=== PATIENT | male | born 1940 | race Caucasian/White ===

== ENCOUNTER → 2016-07-07 | Outpatient (CLI) | payer MEDICARE ==
[2016-07-07 17:14] LABS: APPEARANCE,URINE CLEAR; BILIRUBIN,URINE NEGATIVE (NEGATIVE); GLUCOSE, URINE NEGATIVE (NEGATIVE); KETONES,URINE TRACE mg/dL (NEGATIVE); LEUKOCYTE ESTERASE,URINE NEGATIVE (NEGATIVE); NITRITE,URINE NEGATIVE (NEGATIVE); PROTEIN,URINE NEGATIVE (NEGATIVE); URINE SPECIFIC GRAVITY 1.013
[2016-07-07 17:15] LABS: HEMATOCRIT 37.7 % (37.9-51.0); HEMOGLOBIN 12.7 g/dL (13.5-17.0); HGB HCT DIFFERENCE 0.4; MEAN CORPUSCULAR HEMOGLOBIN 33.3 pg (27.0-33.4); MEAN CORPUSCULAR HGB CONC 33.7 g/dL (32.0-36.0); MEAN CORPUSCULAR VOLUME 99 fl (80-97); RED BLOOD COUNT 3.82 10^6/uL (4.35-5.55); RED CELL DISTRIBUTION WIDTH 15.2 % (11.5-14.0); WHITE BLOOD COUNT 3.4 10^3/uL (4.0-10.5)
[2016-07-07 17:33] LABS: ANION GAP 7 (5-19); BLOOD UREA NITROGEN 31 mg/dL (7-20); CALCIUM 9.4 mg/dL (8.4-10.2); CARBON DIOXIDE 26 mmol/L (22-30); CHLORIDE 107 mmol/L (98-107); CREATININE RESULT 1.36 mg/dL (0.52-1.25); GLUCOSE 100 mg/dL (75-110); POTASSIUM 4.9 mmol/L (3.6-5.0); SODIUM 140.4 mmol/L (137-145)
== END ==
LOC: OD 16:05
PROVIDERS: ATTEND Internal Medicine Nephrology
DX: I12.9 Hypertensive chronic kidney disease with stage 1 through stage 4 chronic kidney disease, or unspecified chronic kidney disease (principal); N18.3 Chronic kidney disease, stage 3 (moderate); D64.9 Anemia, unspecified; R31.9 Hematuria, unspecified
CPT/HCPCS: 36415; 80048; 81001; 85027

== ENCOUNTER → 2017-07-30 | Outpatient (CLI) | payer MEDICARE ==
[2017-07-30 16:47] LABS: ALANINE AMINOTRANSFERASE 28 U/L (21-72); ALBUMIN 3.4 g/dL (3.5-5.0); ALKALINE PHOSPHATASE 61 U/L (38-126); ANION GAP 7 (5-19); ASPARTATE AMINO TRANSFERASE 29 U/L (17-59); BILIRUBIN,DIRECT 0.5 mg/dL (0.0-0.4); BILIRUBIN,TOTAL 1.1 mg/dL (0.2-1.3); BLOOD UREA NITROGEN 28 mg/dL (7-20); CALCIUM 8.8 mg/dL (8.4-10.2); CARBON DIOXIDE 26 mmol/L (22-30); CHLORIDE 109 mmol/L (98-107); GLUCOSE 184 mg/dL (75-110); POTASSIUM 4.3 mmol/L (3.6-5.0); SODIUM 142.3 mmol/L (137-145); TOTAL PROTEIN 6.2 g/dL (6.3-8.2)
== END ==
LOC: OD 15:33
PROVIDERS: ATTEND Internal Medicine Nephrology
DX: N18.3 Chronic kidney disease, stage 3 (moderate) (principal); E87.5 Hyperkalemia; D64.9 Anemia, unspecified
CPT/HCPCS: 36415; 80053; 83735

== ENCOUNTER 2017-09-25 06:38 | Day surgery (SDC) | payer MEDICARE ==
[~2017-09-25 06:38] MED LIST: BUPIVACAINE HCL 0.75% INJ/PF (7.5 MG/1 ML) 10 ML SDV OS PRN; KETOROLAC TROMETHAMINE 0.45% 4 DROP/0.4 ML DROPERETTE OS PRN; LIDOCAINE 4% INJ/PF (40 MG/ML) 5 ML AMPUL OS PRN
[2017-09-25] MEDS: CYCLOPENTOLATE 0.2%/PHENYLEPHRINE 1% OPH SOLN 2 ML OS PRN ×3 (06:59→07:19)
[2017-09-25] MEDS: TETRACAINE HCL 0.5% OPH SOLN 0.6 ML DROPERETTE OS PRN ×2 (06:59→07:44)
[2017-09-25] MEDS: TROPICAMIDE 1% OPH SOLN 3 ML OS PRN ×3 (06:59→07:19)
[2017-09-25] MEDS: BESIFLOXACIN HCL 0.6% OPH SUSP 5 ML BOTTLE OS PRN ×4 (07:00→08:18)
[2017-09-25] MEDS ORDERED: LIDOCAINE 1% INJ-PF (10 MG/ML) 30 ML SDV ONE (07:13)
[2017-09-25] MEDS ORDERED: CHONDR SU A NA/HYALUR INTRAOC KIT (SURGICARE) ONE (07:13)
[2017-09-25] MEDS ORDERED: EPINEPHRINE INJ/PF 1 MG/1 ML AMPULE ONE (07:13)
[2017-09-25] MEDS ORDERED: ONDANSETRON HCL INJ/PF 4 MG/2 ML SDV ONE (07:15)
[2017-09-25] MEDS ORDERED: MIDAZOLAM 2 MG/2 ML INJ ONE (07:15)
[2017-09-25] MEDS ORDERED: FENTANYL CITRATE INJ/PF 100 MCG/2 ML AMPUL ONE (07:15)
--- NOTE | 2017-09-25 08:37 | [facility] OPERATIVE REPORT E ---
[facility] Operative Report NAME: SUSAN NARVAEZ AGE: 76Y DATE OF SURGERY: 09/25/2017 ROOM: PREOPERATIVE DIAGNOSIS: Cataract, left eye. POSTOPERATIVE DIAGNOSIS: Cataract, left eye. OPERATION: Phacoemulsification with posterior chamber intraocular lens, left eye. SURGEON: DIPTI HERNANDEZ M.D. ANESTHESIA: Topical with MAC. INDICATIONS FOR SURGERY: Difficulty reading road signs and glare at night. Best corrected visual acuity 20/40. PROCEDURE: The patient was brought to the Operating Room and placed on the operative table. Following tetracaine drops, topical anesthesia was administered. This consisted of instrument wipe pledgets soaked in a solution of 4% Xylocaine mixed with 0.75% Marcaine in a 1:2 ratio. A 2 x 1 cm pledget was placed in the superior fornix. A 1 x 1 cm pledget was placed in the inferior fornix. The eye was patched shut for 5 minutes. The patch was removed. The eye was sterilely prepped and draped in the usual manner. Lid speculum was placed in the eye. The pledgets were removed. 4-0 black silk sutures were placed around the superior and the inferior rectus muscles to be used as traction. A conjunctival peritomy was made at the 10 o'clock position. Hemostasis was obtained with bipolar cautery. A posterior limbal groove was created using a crescent knife and dissected anteriorly towards the cornea. A sharp point blade was used to create a paracentesis site at the 2 o'clock position. A 2.4 mm keratome was used to enter the anterior chamber through the groove. Viscoelastic was injected into the anterior chamber. An anterior capsulotomy was performed using Utrata forceps in a capsulorrhexis fashion. Hydrodissection and hydrodelineation were performed. Phacoemulsification was performed in wfqjle-daw-eissyaf technique. A total of 8.81 CVE seconds phaco time was used. Following this, the I/A unit was used to remove residual cortex. Viscoelastic was injected into the capsular bag. Intraocular lens model [id number], 19.0 diopters, serial number [id number] was placed in the capsular bag. The I/A unit was used to remove residual viscoelastic. The wound was seen to be watertight under high and low pressure, and no sutures were placed. The intraocular lens was well centered. The pressure was adjusted in the eye to normal pressure. The 4-0 black silk sutures and lid speculum were removed. The eye was shielded after Besivance drops were placed. The patient tolerated the procedure well and was sent to the Recovery Room in good condition. DICTATING PHYSICIAN: DIPTI HERNANDEZ M.D. [id number] PHY#: [id number] ID: [id number] JOB#: [id number] ACCT: [id number] cc:DIPTI HERNANDEZ M.D. >
--- NOTE | 2017-09-25 08:46 | [facility] DISCHARGE SUMMARY E ---
[facility] Discharge Summary NAME: SUSAN NARVAEZ AGE: 76Y ADMITTED: 09/25/2017 DISCHARGED: 09/25/2017 HOSPITAL COURSE: The patient is a 76-year-old gentleman who underwent uneventful cataract extraction with intraoperative implant left eye on 09/25/2017. He will be discharged to home. He is instructed to resume preoperative medications, take Tylenol as needed for discomfort, keep his eye shielded, to use Besivance, Durezol and Ilevro at 3:00 p.m. and 8:00 p.m., and to follow up in my office in 1 day. FINAL DIAGNOSIS: Cataract, left eye. DICTATING PHYSICIAN: DIPTI HERNANDEZ M.D. [id number] Y#: [id number] ID: [id number] JOB#: [id number] ACCT: [id number] cc:DIPTI HERNANDEZ M.D. >
== END 2017-09-25 09:11 | disposition home or self-care (01) ==
LOC: SC 06:38
PROVIDERS: ATTEND Ophthalmology
PROC: 08RK3JZ Replacement of Left Lens with Synthetic Substitute, Percutaneous Approach (ICD-10-PCS; principal; 2017-09-25 08:00)
DX: H25.813 Combined forms of age-related cataract, bilateral (principal); H02.831 Dermatochalasis of right upper eyelid; H02.834 Dermatochalasis of left upper eyelid; H57.03 Miosis; M19.90 Unspecified osteoarthritis, unspecified site; F17.210 Nicotine dependence, cigarettes, uncomplicated; Z79.899 Other long term (current) drug therapy
CPT/HCPCS: 66984; V2632; J2250; J3490 ×4; A9270; J0171; J3010; J2405; 142

== ENCOUNTER → 2017-10-11 | Outpatient (CLI) | payer MEDICARE ==
--- NOTE | 2017-10-11 14:56 | RADIOLOGY REPORT (SQ) ---
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 NUMBER OF VIEWS: Two views. TECHNIQUE: AP and lateral radiographic images acquired of the thoracic spine. LIMITATIONS: None. FINDINGS: MINERALIZATION: Normal. ALIGNMENT: Normal. No scoliosis. VERTEBRAE: No fracture or bone lesion. Maintained height, normal segmentation. DISCS: Multilevel disc space narrowing with osteophytes. HARDWARE: None in the spine. MEDIASTINUM AND SOFT TISSUES: Normal heart size and aortic contour. No soft tissue abnormality. VISUALIZED LUNG ROSS: Clear. OTHER: No other significant finding. IMPRESSION: SPONDYLOSIS WITHOUT BONE LESION OR FRACTURE. TECHNICAL DOCUMENTATION: JOB ID: [id number] [employer]- All Rights Reserved Reading location - IP/workstation name: [email or web address]
--- NOTE | 2017-10-11 14:58 | RADIOLOGY REPORT (SQ) ---
EXAM DESCRIPTION: L SPINE FLEX/EXT ONLY; L SPINE 2 VIEWS COMPLETED DATE/TIME: 10/11/2017 2:09 pm REASON FOR STUDY: LUMBAR RADICULOPATHY (M54.16) M54.16 RADICULOPATHY, LUMBAR REGION M48.04 SPINAL STENOSIS, THORACIC REGION COMPARISON: None. TECHNIQUE: AP and lateral neutral, flexion and extension radiographs of the spine. NUMBER OF VIEWS: Four views. LIMITATIONS: None. FINDINGS: There is a moderate convex right scoliosis. There is disc space narrowing and osteophyte formation at multiple levels with relative sparing of L1-2. No abnormal motion with flexion and exte nsion. OTHER: No other significant finding. IMPRESSION: NO RADIOGRAPHIC EVIDENCE OF ABNORMAL MOTION. TECHNICAL DOCUMENTATION: JOB ID: [id number] [employer]- All Rights Reserved Reading location - IP/workstation name: [email or web address]
--- NOTE | 2017-10-11 14:58 | RADIOLOGY REPORT (SQ) ---
EXAM DESCRIPTION: L SPINE FLEX/EXT ONLY; L SPINE 2 VIEWS COMPLETED DATE/TIME: 10/11/2017 2:09 pm REASON FOR STUDY: LUMBAR RADICULOPATHY (M54.16) M54.16 RADICULOPATHY, LUMBAR REGION M48.04 SPINAL STENOSIS, THORACIC REGION COMPARISON: None. TECHNIQUE: AP and lateral neutral, flexion and extension radiographs of the spine. NUMBER OF VIEWS: Four views. LIMITATIONS: None. FINDINGS: There is a moderate convex right scoliosis. There is disc space narrowing and osteophyte formation at multiple levels with relative sparing of L1-2. No abnormal motion with flexion and exte nsion. OTHER: No other significant finding. IMPRESSION: NO RADIOGRAPHIC EVIDENCE OF ABNORMAL MOTION. TECHNICAL DOCUMENTATION: JOB ID: [id number] [employer]- All Rights Reserved Reading location - IP/workstation name: [email or web address]
== END ==
LOC: RAD 13:53
PROVIDERS: ATTEND Specialist
DX: M48.04 Spinal stenosis, thoracic region (principal); M54.16 Radiculopathy, lumbar region; M41.86 Other forms of scoliosis, lumbar region; M47.894 Other spondylosis, thoracic region
CPT/HCPCS: 72070; 72100; 72120

== ENCOUNTER 2017-10-16 10:55 | Day surgery (SDC) | payer MEDICARE ==
[~2017-10-16 10:55] MED LIST changes: +BUPIVACAINE HCL 0.75% INJ/PF (7.5 MG/1 ML) 10 ML SDV OD PRN; -BUPIVACAINE HCL 0.75% INJ/PF (7.5 MG/1 ML) 10 ML SDV OS PRN; +CHONDR SU A NA/HYALUR INTRAOC KIT (SURGICARE) ONE; +EPINEPHRINE INJ/PF 1 MG/1 ML AMPULE ONE; +KETOROLAC TROMETHAMINE 0.45% 4 DROP/0.4 ML DROPERETTE OD PRN; -KETOROLAC TROMETHAMINE 0.45% 4 DROP/0.4 ML DROPERETTE OS PRN; +LIDOCAINE 4% INJ/PF (40 MG/ML) 5 ML AMPUL OD PRN; -LIDOCAINE 4% INJ/PF (40 MG/ML) 5 ML AMPUL OS PRN
[2017-10-16] MEDS: TETRACAINE HCL 0.5% OPH SOLN 0.6 ML DROPERETTE OD PRN ×2 (11:19→11:47)
[2017-10-16] MEDS: TROPICAMIDE 1% OPH SOLN 3 ML OD PRN ×3 (11:20→11:47)
[2017-10-16] MEDS: CYCLOPENTOLATE 0.2%/PHENYLEPHRINE 1% OPH SOLN 2 ML OD PRN ×3 (11:20→11:47)
[2017-10-16] MEDS: BESIFLOXACIN HCL 0.6% OPH SUSP 5 ML BOTTLE OD PRN ×3 (11:21→12:19)
[2017-10-16] MEDS ORDERED: FENTANYL CITRATE INJ/PF 100 MCG/2 ML AMPUL ONE (11:40)
[2017-10-16] MEDS ORDERED: MIDAZOLAM 2 MG/2 ML INJ ONE (11:40)
[2017-10-16] MEDS ORDERED: ONDANSETRON HCL INJ/PF 4 MG/2 ML SDV ONE (11:40)
[2017-10-16] MEDS ORDERED: LIDOCAINE 1%/PHENYLEPHRINE 1.5% 1 ML VIAL ONE (11:43)
--- NOTE | 2017-10-16 13:14 | [facility] DISCHARGE SUMMARY E ---
[facility] Discharge Summary NAME: SUSAN NARVAEZ AGE: 76Y ADMITTED: 10/16/2017 DISCHARGED: 10/16/2017 HOSPITAL COURSE: The patient is a 76-year-old gentleman who underwent uneventful cataract extraction with intraocular lens implant, right eye, on 10/16/2017. He will be discharged to home. He was instructed to resume preoperative medications, to take Tylenol as needed for discomfort, to keep his eye shielded, to use Besivance, Durezol, and Ilevro at 3:00 p.m. and 8:00 p.m., and to follow up in my office in 1 day. DICTATING PHYSICIAN: DIPTI HERNANDEZ M.D. [id number] PHY#: [id number] ID: [id number] JOB#: [id number] ACCT: [id number] cc:DIPTI HERNANDEZ M.D. >
--- NOTE | 2017-10-16 13:14 | [facility] OPERATIVE REPORT E ---
[facility] Operative Report NAME: SUSAN NARVAEZ AGE: 76Y DATE OF SURGERY: 10/16/2017 ROOM: PREOPERATIVE DIAGNOSIS: Cataract, right eye. POSTOPERATIVE DIAGNOSIS: Cataract, right eye. PROCEDURE PERFORMED: Phacoemulsification with posterior chamber intraocular lens, right eye. SURGEON: DIPTI HERNANDEZ M.D. ANESTHESIA: Topical with MAC. INDICATIONS FOR SURGERY: Difficulty with glare with night driving. BEST CORRECTED VISUAL ACUITY: 20/40. DESCRIPTION OF PROCEDURE: The patient was brought to the operating room and placed on the operative table. Following tetracaine drops, topical anesthesia was administered. This consisted of instrument wipe pledgets soaked in a solution of 4% Xylocaine mixed with 0.75% Marcaine in a 1:2 ratio. A 2 x 1 cm pledget was placed in the superior fornix. A 1 x 1 cm pledget was placed in the inferior fornix. The eye was patched shut for 5 minutes. The patch was removed. The eye was sterilely prepped and draped in the usual manner. Lid speculum was placed in the eye. The pledgets were removed, 4-0 black silk sutures were placed around the superior and the inferior rectus muscles to be used as traction. A conjunctival peritomy was made at the 10 o'clock position. Hemostasis was obtained with bipolar cautery. A posterior limbal groove was created using a crescent knife and dissected anteriorly towards the cornea. A sharp point blade was used to create a paracentesis site at the 2 o'clock position. A 2.4 mm keratome was used to enter the anterior chamber through the groove. Viscoelastic was injected into the anterior chamber. An anterior capsulotomy was performed using Utrata forceps in a capsulorrhexis fashion. Hydrodissection and hydrodelineation were performed. Phacoemulsification was performed in rugvnp-ekp-bsjjgyu technique. Total phaco time, 8.47 CDE. Following this, the I/A unit was used to remove residual cortex. Viscoelastic was injected into the capsular bag. Intraocular lens Model SN60WF, 19.5 diopters, serial number [id number] was placed in the capsular bag. The I/A unit was used to remove residual viscoelastic. The wound was seen to be watertight under high and low pressure, and no sutures were placed. The intraocular lens was well centered. The pressure was adjusted in the eye to normal pressure. The 4-0 black silk sutures and lid speculum were removed. The eye was shielded after Besivance drops were placed. The patient tolerated the procedure well and was sent to the recovery room in good condition. Note, 0.2 mL of 1.5% phenylephrine and 1% non-preserved lidocaine was injected in the eye following the incision. DICTATING PHYSICIAN: DIPTI HERNANDEZ M.D. [id number] PHY#: [id number] ID: [id number] JOB#: [id number] ACCT: [id number] cc:DIPTI HERNANDEZ M.D. >
== END 2017-10-16 13:15 | disposition home or self-care (01) ==
LOC: SC 10:55
PROVIDERS: ATTEND Ophthalmology
DX: H25.11 Age-related nuclear cataract, right eye (principal); H57.03 Miosis; Z96.1 Presence of intraocular lens; F17.210 Nicotine dependence, cigarettes, uncomplicated; G47.30 Sleep apnea, unspecified; K74.60 Unspecified cirrhosis of liver; I12.9 Hypertensive chronic kidney disease with stage 1 through stage 4 chronic kidney disease, or unspecified chronic kidney disease; N18.3 Chronic kidney disease, stage 3 (moderate); Z79.899 Other long term (current) drug therapy
CPT/HCPCS: 66984; V2632; J2250; J3490 ×3; A9270; J0171; J2405; J2370; 142; J3010

== ENCOUNTER → 2017-10-18 | Outpatient (CLI) | payer MEDICARE ==
[2017-10-18 15:18] LABS: ABSOLUTE EOSINOPHILS # (AUTO) 0.1 10^3/uL (0.0-0.6); ABSOLUTE LYMPHOCYTES (AUTO) 0.7 10^3/uL (0.5-4.7); ABSOLUTE MONOCYTES (AUTO) 0.4 10^3/uL (0.1-1.4); BASOPHILS % (AUTO) 0.5 % (0-2); EOSINOPHILS % (AUTO) 3.3 % (0-6); HEMATOCRIT 40.1 % (37.9-51.0); HEMOGLOBIN 13.7 g/dL (13.5-17.0); LYMPHOCYTES % (AUTO) 22.5 % (13-45); MEAN CORPUSCULAR HEMOGLOBIN 34.1 pg (27.0-33.4); MEAN CORPUSCULAR HGB CONC 34.1 g/dL (32.0-36.0); MEAN CORPUSCULAR VOLUME 100 fl (80-97); MONOCYTES % (AUTO) 11.4 % (3-13); RED BLOOD COUNT 4.01 10^6/uL (4.35-5.55); RED CELL DISTRIBUTION WIDTH 14.7 % (11.5-14.0); SEGMENTED NEUTROPHILS % (AUTO) 62.3 % (42-78); TOTAL CELLS COUNTED % (AUTO) 100 %; WHITE BLOOD COUNT 3.1 10^3/uL (4.0-10.5)
--- NOTE | 2017-10-18 15:29 | RADIOLOGY REPORT (SQ) ---
EXAM DESCRIPTION: CHEST PA/LATERAL COMPLETED DATE/TIME: 10/18/2017 3:04 pm REASON FOR STUDY: CHEST PAIN, UNSPECIFIED COMPARISON: Chest x-ray dated December [address] scan dated May 2015 EXAM PARAMETERS: NUMBER OF VIEWS: two views TECHNIQUE: Digital Frontal and Lateral radiographic views of the chest acquired. RADIATION DOSE: NA LIMITATIONS: none FINDINGS: LUNGS AND PLEURA: No acute consolidations or pleural effusions are identified. Pulmonary nodule projected in the right lower lung field consistent with a calcified granuloma when correlated with the previous CT scan appears stable. There is a 2nd pulmonary nodule projected in the right mid lung field which appears minimally increased in size and appears to be spiculated. Chest CT scan ma y be of value for further evaluation. MEDIASTINUM AND HILAR STRUCTURES: No masses or contour abnormalities. There appears be calcified rig ht hilar lymph nodes. HEART AND VASCULAR STRUCTURES: Heart normal size. No evidence for failure. BONES: No acute findings. HARDWARE: None in the chest. OTHER: No other significant finding. IMPRESSION: No acute consolidations or pleural effusions are identified. Calcified granuloma projec yi in the right lower lung field. There is a 2nd pulmonary nodule projected in the right mid lung f ield as noted above which appears minimally increased in size and appears to be spiculated. Chest CT scan may be of value for further evaluation. Other findings as noted above TECHNICAL DOCUMENTATION: JOB ID: [id number] [employer]- All Rights Reserved Reading location - IP/workstation name: [email or web address]
[2017-10-18 15:43] LABS: NT PRO BNP 83 pg/mL (5-900); TROPONIN I < 0.012 ng/mL
[2017-10-18 15:46] LABS: PLATELET COUNT 70 10^3/uL (150-450)
== END ==
LOC: OD 14:20
PROVIDERS: ATTEND Student in an Organized Health Care Education/Training Program
DX: N18.3 Chronic kidney disease, stage 3 (moderate) (principal); E78.2 Mixed hyperlipidemia; R07.9 Chest pain, unspecified; D69.6 Thrombocytopenia, unspecified; R91.1 Solitary pulmonary nodule
CPT/HCPCS: 36415; 71046; 83880; 84484; 85025

== ENCOUNTER → 2017-10-22 | Outpatient (CLI) | payer MEDICARE ==
--- NOTE | 2017-10-22 17:58 | XCELERA REPORT ---
[address] [address] Transthoracic Echocardiogram Report Name: SUSAN NARVAEZ Age: 76 yrs Gender: Male : 1940 Patient Status: Outpatient Patient Location: Study Date: 10/22/2017 01:40 PM Height: 67 in Weight: 183 lb BSA: 1.9 m2 Procedure: A two-dimensional transthoracic echocardiogram with color flow and Doppler was performed. The study was technically difficult with many images being suboptimal in quality. Reason For Study: MURMUR, PRE OP History: MURMUR, PRE OP. Ordering Physician: MORRIS ANSARI Performed By: Joanna Benítez Interpretation Summary The left ventricle is normal in size. There is normal left ventricular wall thickness. LV EF is > than 65% Left ventricular systolic function is normal. Doppler measurements suggest normal left ventricular diastolic function The left ventricular wall motion is normal. The left atrial size is normal. There is no evidence of mitral valve prolapse. There is no mitral valve stenosis. There is no mitral regurgitation noted. There is no aortic valvular vegetation. There is mild aortic stenosis There is a peak gradient of 25 mm of Hg. There is no pericardial effusion. MMode/2D Measurements & Calculations RVDd: 2.6 cm LVIDd: 5.0 cm FS: 38.6 % Ao root diam: 3.5 cm IVSd: 1.0 cm LVIDs: 3.1 cm EDV(Teich): 119.5 ml LVPWd: 0.98 cmESV(Teich): 37.4 ml Ao root area: 9.6 cm2 EF(Teich): 68.7 % LVOT diam: 2.2 cm LVOT area: 3.8 cm2 Doppler Measurements & Calculations MV E max ashu: MV dec slope: Ao V2 max: LV V1 max P.6 cm/sec 343.2 cm/sec2 248.9 cm/sec 8.7 mmHg MV A max ashu: MV dec time: Ao max PG: LV V1 max: 84.0 cm/sec 0.23 sec 24.8 mmHg 147.9 cm/sec MV E/A: 0.94 LUIS F(V,D): 2.2 cm2 PA V2 max: TR max ashu: 113.9 cm/sec 246.7 cm/sec PA max PG: TR max P.4 mmHg 5.2 mmHg Left Ventricle The left ventricle is normal in size. There is normal left ventricular wall thickness. LV EF is > than 65%. Left ventricular systolic function is normal. Doppler measurements suggest normal left ventricular diastolic function. The left ventricular wall motion is normal. There is no thrombus. There is no ventricular septal defect visualized. Right Ventricle The right ventricle is normal in size and function. Atria The right atrium is normal. The left atrial size is normal. The interatrial septum is intact with no evidence for an atrial septal defect. Mitral Valve There is no evidence of mitral valve prolapse. There is no vegetation seen on the mitral valve. There is no mitral valve stenosis. There is no mitral regurgitation noted. Aortic Valve There is no aortic valvular vegetation. There is mild aortic stenosis. There is a peak gradient of 25 mm of Hg. There is no LVOT obstruction. No aortic regurgitation is present. Tricuspid Valve There is no tricuspid stenosis. No tricuspid regurgitation. Great Vessels The aortic root is not well visualized but is probably normal size. Effusions There is no pericardial effusion. : MORRIS ANSARI > Quynh Dasilva
== END ==
LOC: SP 13:07
PROVIDERS: ATTEND Hospitalist
DX: R01.1 Cardiac murmur, unspecified (principal)
CPT/HCPCS: 93306

== ENCOUNTER → 2017-10-30 | Outpatient (CLI) | payer MEDICARE | LOC: OD 14:51 | PROVIDERS: ATTEND Student in an Organized Health Care Education/Training Program | DX: N18.9 Chronic kidney disease, unspecified (principal) | CPT/HCPCS: 36415; 82565 ==

== ENCOUNTER → 2017-11-21 | Outpatient (CLI) | payer MEDICARE ==
--- NOTE | 2017-11-21 14:42 | RADIOLOGY REPORT (SQ) ---
EXAM DESCRIPTION: CT CHEST WITH COMPLETED DATE/TIME: 11/21/2017 2:13 pm REASON FOR STUDY: PULMONARY NODULE (R91.1) R91.1 SOLITARY PULMONARY NODULE COMPARISON: Chest films 11/22/2011, 10/31/2012, 10/18/2017 TECHNIQUE: CT scan of the chest performed using helical scanning technique with dynamic intravenous contrast injection. Images reviewed with lung, soft tissue and bone windows. Reconstructed coronal and sagittal MPR images reviewed. All images stored on PACS. All CT scanners at this facility use dose modulation, iterative reconstruction, and/or weight based d osing when appropriate to reduce radiation dose to as low as reasonably achievable (ALARA). [facility]: Dose Right [facility]: CareDose [facility]: Dose Right [facility]: Teradose 4D [facility]: Musicnotes CONTRAST TYPE AND DOSE: contrast/concentration: Isovue 370.00 mg/ml; Total Contrast Delivered: 80.0 ml; Total Saline Delivered: 55.0 ml RENAL FUNCTION: Creatinine 1.2 RADIATION DOSE: CT Rad equipment meets quality standard of care and radiation dose reduction techniq ues were employed. CTDIvol: 10.3 mGy. DLP: 386 mGy-cm. . LIMITATIONS: None. FINDINGS: LUNGS AND PLEURA: On axial image 44, a densely calcified nodule is present in the right up per lobe measuring about 1 cm in size. This has a rind of soft tissue along its lateral aspect. Per iodic CT surveillance of this nodule to monitor the soft tissue component is recommended, uncontraste d CT chest is recommended in 12 months for followup. A densely calcified benign granuloma is present in the right middle lobe unchanged by plain film dati ng back to 2011. No focal infiltrates. No pleural effusion. No pneumothorax. HILAR AND MEDIASTINAL STRUCTURES: Densely calcified right hilar and pretracheal lymph nodes from old granulomatous disease. HEART AND VASCULAR STRUCTURES: No aneurysm or dissection. No central pulmonary emboli. No pericardi al effusion. Aortic valve calcification. No significant coronary artery calcifications. HARDWARE: None in the chest. UPPER ABDOMEN: Nodular liver from cirrhosis. Splenomegaly. Right adrenal 2 cm fatty at adenoma. Cl ips right upper quadrant post cholecystectomy THYROID AND OTHER SOFT TISSUES: No masses. No adenopathy. BONES: No significant finding. OTHER: No other significant finding. IMPRESSION: Densely calcified nodule right upper lobe with thin rim soft tissue component along its periphery. This likely represents an old calcified granuloma. 1 year follow-up non contrasted chest CT is recommended to exclude growth or change. Stable benign granuloma right middle lobe. TECHNICAL DOCUMENTATION: JOB ID: [id number] Quality ID # [id number]: Final reports with documentation of one or more dose reduction techniques (e.g., Au tomated exposure control, adjustment of the mA and/or kV according to patient size, use of iterative reconstruction technique) 2010 [employer]- All Rights Reserved Reading location - IP/workstation name: [email or web address]
== END ==
LOC: RAD 13:34
PROVIDERS: ATTEND Student in an Organized Health Care Education/Training Program
DX: R91.1 Solitary pulmonary nodule (principal)
CPT/HCPCS: 71260; 82565

== ENCOUNTER 2017-12-23 17:51 | Emergency (ER) | payer MEDICARE ==
--- NOTE | 2017-12-23 18:42 | ER Document Report ---
ED Medical Screen (RME) - General Chief Complaint: Chest Pain Stated Complaint: CHEST PAIN Time Seen by Provider: 12/23/17 18:41 TRAVEL OUTSIDE OF THE [place] IN LAST 30 DAYS: No - HPI Notes: 12/23/17 18:42 Patient at "[facility]" when pain started and the left upper quadrant going into the left side of the chest. Denies nausea vomiting fevers chills diarrhea - Related Data Allergies/Adverse Reactions: No Known Allergies Allergy (Verified 09/25/17 07:27) Past Medical History - Past Medical History Cardiac Medical History: Reports: Hx Hypertension Denies: Hx Coronary Artery Disease, Hx Heart Attack Pulmonary Medical History: Reports: Hx Sleep Apnea Denies: Hx Asthma, Hx Bronchitis, Hx COPD, Hx Pneumonia, Hx Tuberculosis Neurological Medical History: Denies: Hx Cerebrovascular Accident, Hx Seizures Renal/ Medical History: Reports: Hx Benign Prostatic Hyperplasia, Hx Kidney Stones GI Medical History: Reports: Hx Gastroesophageal Reflux Disease. Denies: Hx Hepatitis, Hx Hiatal Hernia, Hx Ulcer Musculoskeltal Medical History: Reports Hx Arthritis Psychiatric Medical History: Reports: Hx Depression Infectious Medical History: Denies: Hx Hepatitis Past Surgical History: Reports: Hx Cholecystectomy. Denies: Hx Open Heart Surgery, Hx Pacemaker - Immunizations Hx Diphtheria, Pertussis, Tetanus Vaccination: Yes Review of Systems - Review of Systems Cardiovascular: Chest pain Physical Exam - Vital signs Vitals: Temp Pulse Resp BP Pulse Ox 97.9 F 55 L 16 137/80 H 96 12/23/17 18:05 12/23/17 18:05 12/23/17 18:05 12/23/17 18:05 12/23/17 18:05 - Respiratory Respiratory status: No respiratory distress Chest status: Tender Breath sounds: Normal Chest palpation: Normal Course - Vital Signs Vital signs: Temp Pulse Resp BP Pulse Ox 97.9 F 55 L 16 137/80 H 96 12/23/17 18:05 12/23/17 18:05 12/23/17 18:05 12/23/17 18:05 12/23/17 18:05 Doctor's Discharge - Discharge Referrals: PENNY ROPER DO [Primary Care Provider] - Follow up as needed
[2017-12-23 19:27] LABS: ABSOLUTE EOSINOPHILS # (AUTO) 0.1 10^3/uL (0.0-0.6); ABSOLUTE LYMPHOCYTES (AUTO) 0.6 10^3/uL (0.5-4.7); ABSOLUTE MONOCYTES (AUTO) 0.2 10^3/uL (0.1-1.4); ABSOLUTE NEUT (AUTO) 1.9 10^3/uL (1.7-8.2); BASOPHILS % (AUTO) 0.6 % (0-2); EOSINOPHILS % (AUTO) 2.6 % (0-6); HEMATOCRIT 40.4 % (37.9-51.0); HEMOGLOBIN 13.8 g/dL (13.5-17.0); LYMPHOCYTES % (AUTO) 21.1 % (13-45); MEAN CORPUSCULAR HEMOGLOBIN 34.2 pg (27.0-33.4); MEAN CORPUSCULAR HGB CONC 34.1 g/dL (32.0-36.0); MEAN CORPUSCULAR VOLUME 100 fl (80-97); MONOCYTES % (AUTO) 8.5 % (3-13); RED BLOOD COUNT 4.03 10^6/uL (4.35-5.55); RED CELL DISTRIBUTION WIDTH 14.1 % (11.5-14.0); SEGMENTED NEUTROPHILS % (AUTO) 67.2 % (42-78); TOTAL CELLS COUNTED % (AUTO) 100 %; WHITE BLOOD COUNT 2.8 10^3/uL (4.0-10.5)
[2017-12-23 19:31] LABS: PLATELET COUNT 88 10^3/uL (150-450)
[2017-12-23 19:34] LABS: INTERNATIONAL RATION (INR) 1.16; PROTHROMBIN TIME 15.4 SEC (11.4-15.4)
[2017-12-23 19:38] LABS: APPEARANCE,URINE CLEAR; BILIRUBIN,URINE NEGATIVE (NEGATIVE); COLOR,URINE YELLOW; GLUCOSE, URINE NEGATIVE (NEGATIVE); KETONES,URINE NEGATIVE (NEGATIVE); LEUKOCYTE ESTERASE,URINE NEGATIVE (NEGATIVE); NITRITE,URINE NEGATIVE (NEGATIVE); PROTEIN,URINE NEGATIVE (NEGATIVE); URINE SPECIFIC GRAVITY 1.014
--- NOTE | 2017-12-23 19:42 | RADIOLOGY REPORT (SQ) ---
EXAM DESCRIPTION: CHEST SINGLE VIEW COMPLETED DATE/TIME: 12/23/2017 7:15 pm REASON FOR STUDY: luq pain cp COMPARISON: 01/01/2015. EXAM PARAMETERS: NUMBER OF VIEWS: One view. TECHNIQUE: Single frontal radiographic view of the chest acquired. RADIATION DOSE: NA LIMITATIONS: None. FINDINGS: LUNGS AND PLEURA: Mild basilar atelectasis. Small focal scar in the mid right lung. No p leural effusion. No pneumothorax. MEDIASTINUM AND HILAR STRUCTURES: No masses. Contour normal. HEART AND VASCULAR STRUCTURES: Heart normal in size. Normal vasculature. BONES: No acute findings. HARDWARE: Hardware in the cervical spine. OTHER: No other significant finding. IMPRESSION: MILD BASILAR ATELECTASIS. NO ACUTE RADIOGRAPHIC FINDING IN THE CHEST. TECHNICAL DOCUMENTATION: JOB ID: [id number]- All Rights Reserved Reading location - IP/workstation name: [email or web address]
[2017-12-23 19:43] LABS: ALANINE AMINOTRANSFERASE 35 U/L (21-72); ALBUMIN 3.8 g/dL (3.5-5.0); ALKALINE PHOSPHATASE 57 U/L (38-126); ANION GAP 12 (5-19); ASPARTATE AMINO TRANSFERASE 45 U/L (17-59); BILIRUBIN,DIRECT 0.4 mg/dL (0.0-0.4); BILIRUBIN,TOTAL 1.1 mg/dL (0.2-1.3); BLOOD UREA NITROGEN 29 mg/dL (7-20); CALCIUM 9.1 mg/dL (8.4-10.2); CARBON DIOXIDE 25 mmol/L (22-30); CHLORIDE 109 mmol/L (98-107); CREATINE KINASE 51 U/L (55-170); GLUCOSE 148 mg/dL (75-110); LIPASE 172.9 U/L (23-300); POTASSIUM 4.4 mmol/L (3.6-5.0); SODIUM 146.2 mmol/L (137-145); TOTAL PROTEIN 7.2 g/dL (6.3-8.2)
--- NOTE | 2017-12-23 19:43 | RADIOLOGY REPORT (SQ) ---
EXAM DESCRIPTION: KUB/ABDOMEN (SINGLE VIEW) COMPLETED DATE/TIME: 12/23/2017 7:15 pm REASON FOR STUDY: luq pain cp COMPARISON: 11/08/2012. NUMBER OF VIEWS: One view. TECHNIQUE: Supine radiographic image of the abdomen acquired. LIMITATIONS: None. FINDINGS: BOWEL GAS PATTERN: Normal bowel gas pattern. No dilated loops. CALCIFICATIONS: Bilateral renal calculi. SOFT TISSUES: No gross mass or suggestion of organomegaly. HARDWARE: Surgical clips. BONES: No acute fracture. Chronic changes in the spine. No worrisome bone lesions. OTHER: No other significant finding. IMPRESSION: BILATERAL RENAL CALCULI. NO RADIOGRAPHIC EVIDENCE FOR ACUTE ABDOMINAL DISEASE. TECHNICAL DOCUMENTATION: JOB ID: [id number] [employer]- All Rights Reserved Reading location - IP/workstation name: [email or web address]
[2017-12-23 19:54] LABS: CREATINE KINASE MB 0.88 ng/mL (<4.55)
[2017-12-23 19:59] LABS: TROPONIN I < 0.012 ng/mL
--- NOTE | 2017-12-23 21:14 | ER Document Report ---
ED Cardiac - General Chief Complaint: Chest Pain Stated Complaint: CHEST PAIN Time Seen by Provider: 12/23/17 18:41 Notes: Patient is a 77-year-old male comes emergency department for chief complaint of chest pain. He states he was at [facility] and had eaten a couple biscuits when he suddenly started feeling sharp pain in the left side of his chest that went up into his shoulder and then up into his neck. Symptoms lasted for a few minutes and then resolved. He denies feeling nausea, denies vomiting, denies back pain, denies dizziness, shortness of breath. He states he felt fine before and afterwards. He denies to me feeling any pain in his abdomen. Past medical history of hypertension, nonalcoholic cirrhosis of the liver, RADHA, GERD , cholecystectomy, chronic kidney disease. He smokes a pipe. Has had a stress test many years ago. Denies personal or family history of [place]. TRAVEL OUTSIDE OF THE [place] IN LAST 30 DAYS: No - Related Data Allergies/Adverse Reactions: No Known Allergies Allergy (Verified 12/23/17 18:43) Past Medical History - General Information source: Patient - Social History Smoking Status: Current Some Day Smoker Chew tobacco use (# tins/day): No Frequency of alcohol use: None Drug Abuse: None Lives with: Family Family History: Reviewed & Not Pertinent Patient has suicidal ideation: No Patient has homicidal ideation: No - Past Medical History Cardiac Medical History: Reports: Hx Hypertension Denies: Hx Coronary Artery Disease, Hx Heart Attack Pulmonary Medical History: Reports: Hx Sleep Apnea Denies: Hx Asthma, Hx Bronchitis, Hx COPD, Hx Pneumonia, Hx Tuberculosis Neurological Medical History: Denies: Hx Cerebrovascular Accident, Hx Seizures Renal/ Medical History: Reports: Hx Benign Prostatic Hyperplasia, Hx Kidney Stones. Denies: Hx Peritoneal Dialysis GI Medical History: Reports: Hx Gastroesophageal Reflux Disease. Denies: Hx Hepatitis, Hx Hiatal Hernia, Hx Ulcer Musculoskeletal Medical History: Reports Hx Arthritis Psychiatric Medical History: Reports: Hx Depression Infectious Medical History: Denies: Hx Hepatitis Past Surgical History: Reports: Hx Cholecystectomy. Denies: Hx Open Heart Surgery, Hx Pacemaker - Immunizations Hx Diphtheria, Pertussis, Tetanus Vaccination: Yes Hx Pneumococcal Vaccination: 03/24/15 Review of Systems - Review of Systems Constitutional: No symptoms reported EENT: No symptoms reported Cardiovascular: See HPI Respiratory: No symptoms reported Gastrointestinal: No symptoms reported Genitourinary: No symptoms reported Male Genitourinary: No symptoms reported Musculoskeletal: No symptoms reported Skin: No symptoms reported Hematologic/Lymphatic: No symptoms reported Neurological/Psychological: No symptoms reported Physical Exam - Vital signs Vitals: Temp Pulse Resp BP Pulse Ox 97.9 F 55 L 16 137/80 H 96 12/23/17 18:05 12/23/17 18:05 12/23/17 18:05 12/23/17 18:05 12/23/17 18:05 - Notes Notes: GENERAL: Alert, interacts well. No acute distress. HEAD: Normocephalic, atraumatic. EYES: Pupils equal, round, and reactive to light. Extraocular movements intact. ENT: Oral mucosa moist, tongue midline. NECK: Full range of motion. Supple. Trachea midline. LUNGS: Clear to auscultation bilaterally, no wheezes, rales, or rhonchi. No respiratory distress. HEART: Regular rate and rhythm. No murmur ABDOMEN: Soft, non-tender. Non-distended. Bowel sounds present in all 4 quadrants. EXTREMITIES: Moves all 4 extremities spontaneously. No edema, normal radial and dorsalis pedis pulses bilaterally. No cyanosis. BACK: no cervical, thoracic, lumbar midline tenderness. No saddle anesthesia, normal distal neurovascular exam. NEUROLOGICAL: Alert and oriented x3. Normal speech. [cranial nerves II through XII grossly intact]. PSYCH: Normal affect, normal mood. SKIN: Warm, dry, normal turgor. No rashes or lesions noted. Course - Re-evaluation Re-evalutation: EKG showing bigeminy with PACs, no T-wave inversions or ST segment changes. Normal axis. Chest x-ray with no acute findings, KUB performed because of suspected abdominal pain based on patient's description although patient denies to me any abdominal pain. KUB shows incidental nephrolithiasis but no other abnormalities. CBC indicates leukopenia although this is similar and consistent with prior. No other acute findings on CBC. Chemistry generally unremarkable shows mildly elevated renal functioning although this is also consistent with prior. Initial troponin is negative. Because of patient's age, hypertension, smoking history, and reported chest pain which resolved I discussed with family about options. Heart score is technically 3 although based on patient's age and his reported symptoms and recommended telemetry observation to complete cardiac workup. Reevaluated patient. Second troponin negative. Patient still asymptomatic. 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 Patient has the support of his family and this decision. Patient therefore was discharged with strict return precautions and very specific follow-up instructions. - Vital Signs Vital signs: Temp Pulse Resp BP Pulse Ox 98.1 F 55 L 17 126/80 H 98 12/23/17 23:40 12/23/17 18:05 12/23/17 23:36 12/23/17 23:36 12/23/17 23:36 - Laboratory Result Diagrams: 12/23/17 18:57 12/23/17 18:57 Laboratory results interpreted by me: 12/23/17 12/23/17 12/23/17 18:57 18:57 18:57 WBC 2.8 L RBC 4.03 L MCV 100 H MCH 34.2 H RDW 14.1 H Plt Count 88 L Sodium 146.2 H Chloride 109 H BUN 29 H Creatinine 1.39 H Est GFR (Non-Af Amer) 50 L Glucose 148 H Creatine Kinase 51 L Urine Urobilinogen 4.0 H Discharge - Discharge Clinical Impression: Chest pain Qualifiers: Chest pain type: unspecified Qualified Code(s): R07.9 - Chest pain, unspecified Condition: Stable Disposition: HOME, SELF-CARE Additional Instructions: Your workup tonight does not show any concerning abnormalities. You do have kidney stones in your kidneys, this is routine follow-up with urology. Because of your negative workup incentive admission tonight and have elected to perform a very close follow-up with cardiology, call him in the morning to perform this follow-up. Return immediately if you worsen including chest pain, vomiting, shortness of breath, passing out, or any other concerning symptoms. Referrals: PENNY ROPER, DO [Primary Care Provider] - Follow up as needed
--- NOTE | 2017-12-23 22:59 | EKG REPORT ---
SEVERITY:- ABNORMAL ECG - SINUS RHYTHM SUPRAVENTRICULAR BIGEMINY : Confirmed by: Bran Bejarano 23-Dec-2017 22:59:11
[2017-12-23 23:44] VITALS: BP 126/80
== END 2017-12-23 23:42 | disposition home or self-care (01) ==
LOC: ER 17:51
DX: R07.9 Chest pain, unspecified (principal); N20.0 Calculus of kidney; I49.1 Atrial premature depolarization; I10 Essential (primary) hypertension; F17.290 Nicotine dependence, other tobacco product, uncomplicated
CPT/HCPCS: 36415; 71045; 74018; 80053; 81001; 82550; 82553; 83690; 84484; 85025; 85610; 93005; 93010; 99285

== ENCOUNTER → 2018-02-07 | Outpatient (CLI) | payer MEDICARE ==
[2018-02-07 12:33] LABS: HEMATOCRIT 38.2 % (37.9-51.0); HEMOGLOBIN 13.2 g/dL (13.5-17.0); MEAN CORPUSCULAR HGB CONC 34.6 g/dL (32.0-36.0); MEAN CORPUSCULAR VOLUME 98 fl (80-97); RED BLOOD COUNT 3.89 10^6/uL (4.35-5.55); RED CELL DISTRIBUTION WIDTH 14.1 % (11.5-14.0); WHITE BLOOD COUNT 3.3 10^3/uL (4.0-10.5)
[2018-02-07 12:38] LABS: APPEARANCE,URINE CLEAR; BILIRUBIN,URINE NEGATIVE (NEGATIVE); COLOR,URINE YELLOW; GLUCOSE, URINE NEGATIVE (NEGATIVE); KETONES,URINE NEGATIVE (NEGATIVE); LEUKOCYTE ESTERASE,URINE NEGATIVE (NEGATIVE); NITRITE,URINE NEGATIVE (NEGATIVE); PROTEIN,URINE NEGATIVE (NEGATIVE); URINE SPECIFIC GRAVITY 1.013
[2018-02-07 12:52] LABS: ANION GAP 7 (5-19); BLOOD UREA NITROGEN 36 mg/dL (7-20); CALCIUM 9.2 mg/dL (8.4-10.2); CARBON DIOXIDE 23 mmol/L (22-30); CHLORIDE 109 mmol/L (98-107); GLUCOSE 103 mg/dL (75-110); POTASSIUM 4.6 mmol/L (3.6-5.0); SODIUM 138.5 mmol/L (137-145)
[2018-02-07 13:20] LABS: PLATELET COUNT 67 10^3/uL (150-450)
== END ==
LOC: OD 11:51
PROVIDERS: ATTEND Internal Medicine Nephrology
DX: N18.3 Chronic kidney disease, stage 3 (moderate) (principal); I12.9 Hypertensive chronic kidney disease with stage 1 through stage 4 chronic kidney disease, or unspecified chronic kidney disease; D64.9 Anemia, unspecified; E87.5 Hyperkalemia
CPT/HCPCS: 36415; 80048; 81001; 85027

== ENCOUNTER → 2018-07-09 | Outpatient (CLI) | payer MEDICARE ==
[2018-07-09 13:43] LABS: ABSOLUTE EOSINOPHILS # (AUTO) 0.1 10^3/uL (0.0-0.6); ABSOLUTE LYMPHOCYTES (AUTO) 0.6 10^3/uL (0.5-4.7); ABSOLUTE MONOCYTES (AUTO) 0.3 10^3/uL (0.1-1.4); ABSOLUTE NEUT (AUTO) 2.8 10^3/uL (1.7-8.2); BASOPHILS % (AUTO) 0.6 % (0-2); EOSINOPHILS % (AUTO) 2.4 % (0-6); HEMOGLOBIN 10.8 g/dL (13.5-17.0); LYMPHOCYTES % (AUTO) 16.7 % (13-45); MEAN CORPUSCULAR HGB CONC 34.7 g/dL (32.0-36.0); MEAN CORPUSCULAR VOLUME 95 fl (80-97); MONOCYTES % (AUTO) 8.3 % (3-13); PLATELET COUNT 104 10^3/uL (150-450); RED BLOOD COUNT 3.26 10^6/uL (4.35-5.55); RED CELL DISTRIBUTION WIDTH 14.5 % (11.5-14.0); TOTAL CELLS COUNTED % (AUTO) 100 %; WHITE BLOOD COUNT 3.9 10^3/uL (4.0-10.5)
[2018-07-09 14:01] LABS: ANION GAP 6 (5-19); BLOOD UREA NITROGEN 30 mg/dL (7-20); CALCIUM 8.2 mg/dL (8.4-10.2); CARBON DIOXIDE 23 mmol/L (22-30); CHLORIDE 111 mmol/L (98-107); GLUCOSE 119 mg/dL (75-110); POTASSIUM 4.2 mmol/L (3.6-5.0); SODIUM 139.8 mmol/L (137-145)
== END ==
LOC: OD 13:08
PROVIDERS: ATTEND Internal Medicine Nephrology
DX: I12.9 Hypertensive chronic kidney disease with stage 1 through stage 4 chronic kidney disease, or unspecified chronic kidney disease (principal); N18.3 Chronic kidney disease, stage 3 (moderate)
CPT/HCPCS: 36415; 80048; 85025

== ENCOUNTER → 2018-08-08 | Outpatient (CLI) | payer MEDICARE ==
[2018-08-08 13:47] LABS: ABSOLUTE EOSINOPHILS # (AUTO) 0.2 10^3/uL (0.0-0.6); ABSOLUTE LYMPHOCYTES (AUTO) 0.7 10^3/uL (0.5-4.7); ABSOLUTE MONOCYTES (AUTO) 0.4 10^3/uL (0.1-1.4); BASOPHILS % (AUTO) 0.5 % (0-2); EOSINOPHILS % (AUTO) 5.9 % (0-6); HEMATOCRIT 30.7 % (37.9-51.0); HEMOGLOBIN 10.7 g/dL (13.5-17.0); LYMPHOCYTES % (AUTO) 20.4 % (13-45); MEAN CORPUSCULAR HGB CONC 34.9 g/dL (32.0-36.0); MEAN CORPUSCULAR VOLUME 95 fl (80-97); RED BLOOD COUNT 3.25 10^6/uL (4.35-5.55); RED CELL DISTRIBUTION WIDTH 14.9 % (11.5-14.0); SEGMENTED NEUTROPHILS % (AUTO) 61.2 % (42-78); TOTAL CELLS COUNTED % (AUTO) 100 %; WHITE BLOOD COUNT 3.2 10^3/uL (4.0-10.5)
[2018-08-08 13:51] LABS: PLATELET COUNT 76 10^3/uL (150-450)
[2018-08-08 14:04] LABS: ALANINE AMINOTRANSFERASE 16 U/L (21-72); ALBUMIN 3.4 g/dL (3.5-5.0); ALKALINE PHOSPHATASE 55 U/L (38-126); ANION GAP 6 (5-19); ASPARTATE AMINO TRANSFERASE 23 U/L (17-59); BILIRUBIN,DIRECT 0.2 mg/dL (0.0-0.4); BILIRUBIN,TOTAL 0.6 mg/dL (0.2-1.3); BLOOD UREA NITROGEN 33 mg/dL (7-20); CALCIUM 9.1 mg/dL (8.4-10.2); CARBON DIOXIDE 29 mmol/L (22-30); CHLORIDE 106 mmol/L (98-107); GLUCOSE 97 mg/dL (75-110); POTASSIUM 4.5 mmol/L (3.6-5.0); SODIUM 140.9 mmol/L (137-145); TOTAL PROTEIN 6.3 g/dL (6.3-8.2)
[2018-08-08 14:10] LABS: BLOOD UREA NITROGEN 33 mg/dL (7-20); CALCIUM 9.1 mg/dL (8.4-10.2); GLUCOSE 97 mg/dL (75-110); POTASSIUM 4.5 mmol/L (3.6-5.0)
[2018-08-08 14:11] LABS: CHLORIDE 106 mmol/L (98-107)
[2018-08-08 14:12] LABS: ANION GAP 6 (5-19); CARBON DIOXIDE 29 mmol/L (22-30); SODIUM 140.9 mmol/L (137-145)
== END ==
LOC: OD 12:33
PROVIDERS: ATTEND Internal Medicine Nephrology
DX: I12.9 Hypertensive chronic kidney disease with stage 1 through stage 4 chronic kidney disease, or unspecified chronic kidney disease (principal); N18.3 Chronic kidney disease, stage 3 (moderate); K74.60 Unspecified cirrhosis of liver; R79.89 Other specified abnormal findings of blood chemistry
CPT/HCPCS: 36415; 80048; 80053; 83735; 85025

== ENCOUNTER → 2018-09-16 | Outpatient (CLI) | payer MEDICARE ==
[2018-09-16 15:38] LABS: HEMATOCRIT 33.3 % (37.9-51.0); HEMOGLOBIN 11.5 g/dL (13.5-17.0); MEAN CORPUSCULAR HEMOGLOBIN 31.6 pg (27.0-33.4); MEAN CORPUSCULAR HGB CONC 34.6 g/dL (32.0-36.0); MEAN CORPUSCULAR VOLUME 91 fl (80-97); RED BLOOD COUNT 3.64 10^6/uL (4.35-5.55); RED CELL DISTRIBUTION WIDTH 15.8 % (11.5-14.0); WHITE BLOOD COUNT 3.7 10^3/uL (4.0-10.5)
[2018-09-16 15:58] LABS: BLOOD UREA NITROGEN 27 mg/dL (7-20); CALCIUM 9.7 mg/dL (8.4-10.2); GLUCOSE 76 mg/dL (75-110)
[2018-09-16 15:59] LABS: ALANINE AMINOTRANSFERASE 20 U/L (21-72); ALBUMIN 3.3 g/dL (3.5-5.0); ALKALINE PHOSPHATASE 58 U/L (38-126); ASPARTATE AMINO TRANSFERASE 23 U/L (17-59); BILIRUBIN,DIRECT 0.3 mg/dL (0.0-0.4); BILIRUBIN,TOTAL 0.5 mg/dL (0.2-1.3); CARBON DIOXIDE 27 mmol/L (22-30); CHLORIDE 111 mmol/L (98-107); PHOSPHORUS 3.2 mg/dL (2.5-4.5); POTASSIUM 3.3 mmol/L (3.6-5.0); SODIUM 141.7 mmol/L (137-145); TOTAL PROTEIN 6.5 g/dL (6.3-8.2)
[2018-09-16 16:04] LABS: ANION GAP 4 (5-19)
[2018-09-16 16:22] LABS: PLATELET COUNT 84 10^3/uL (150-450)
[2018-09-16 16:29] LABS: APPEARANCE,URINE CLEAR; BILIRUBIN,URINE NEGATIVE (NEGATIVE); COLOR,URINE YELLOW; GLUCOSE, URINE NEGATIVE (NEGATIVE); KETONES,URINE NEGATIVE (NEGATIVE); LEUKOCYTE ESTERASE,URINE NEGATIVE (NEGATIVE); NITRITE,URINE NEGATIVE (NEGATIVE); PROTEIN,URINE NEGATIVE (NEGATIVE); URINE SPECIFIC GRAVITY 1.019; UROBILINOGEN,URINE NEGATIVE mg/dL (<2.0)
== END ==
LOC: OD 15:14
PROVIDERS: ATTEND Internal Medicine Nephrology
DX: N18.3 Chronic kidney disease, stage 3 (moderate) (principal); E11.9 Type 2 diabetes mellitus without complications
CPT/HCPCS: 36415; 80053; 81001; 83735; 83970; 84100; 85027

== ENCOUNTER → 2018-10-30 | Outpatient (CLI) | payer MEDICARE ==
[2018-10-30 16:51] LABS: ABSOLUTE EOSINOPHILS # (AUTO) 0.1 10^3/uL (0.0-0.6); ABSOLUTE LYMPHOCYTES (AUTO) 0.5 10^3/uL (0.5-4.7); ABSOLUTE MONOCYTES (AUTO) 0.3 10^3/uL (0.1-1.4); ABSOLUTE NEUT (AUTO) 2.1 10^3/uL (1.7-8.2); BASOPHILS % (AUTO) 0.5 % (0-2); EOSINOPHILS % (AUTO) 2.9 % (0-6); HEMATOCRIT 37.5 % (37.9-51.0); HEMOGLOBIN 12.7 g/dL (13.5-17.0); LYMPHOCYTES % (AUTO) 16.1 % (13-45); MEAN CORPUSCULAR HEMOGLOBIN 32.3 pg (27.0-33.4); MEAN CORPUSCULAR VOLUME 95 fl (80-97); MONOCYTES % (AUTO) 10.7 % (3-13); RED BLOOD COUNT 3.94 10^6/uL (4.35-5.55); RED CELL DISTRIBUTION WIDTH 19.1 % (11.5-14.0); SEGMENTED NEUTROPHILS % (AUTO) 69.8 % (42-78); TOTAL CELLS COUNTED % (AUTO) 100 %; WHITE BLOOD COUNT 2.9 10^3/uL (4.0-10.5)
[2018-10-30 17:18] LABS: ALANINE AMINOTRANSFERASE 28 U/L (21-72); ALBUMIN 3.6 g/dL (3.5-5.0); ALKALINE PHOSPHATASE 61 U/L (38-126); ANION GAP 12 (5-19); ASPARTATE AMINO TRANSFERASE 30 U/L (17-59); BILIRUBIN,DIRECT 0.3 mg/dL (0.0-0.4); BILIRUBIN,TOTAL 1.3 mg/dL (0.2-1.3); BLOOD UREA NITROGEN 25 mg/dL (7-20); CALCIUM 9.1 mg/dL (8.4-10.2); CARBON DIOXIDE 26 mmol/L (22-30); CHLORIDE 106 mmol/L (98-107); GLUCOSE 166 mg/dL (75-110); POTASSIUM 3.7 mmol/L (3.6-5.0); TOTAL PROTEIN 6.4 g/dL (6.3-8.2)
[2018-10-30 17:32] LABS: PLATELET COUNT 78 10^3/uL (150-450)
== END ==
LOC: OD 15:46
PROVIDERS: ATTEND Internal Medicine Nephrology
DX: I12.9 Hypertensive chronic kidney disease with stage 1 through stage 4 chronic kidney disease, or unspecified chronic kidney disease (principal); N18.3 Chronic kidney disease, stage 3 (moderate); E87.6 Hypokalemia; R60.9 Edema, unspecified
CPT/HCPCS: 36415; 80053; 83735; 85025

== ENCOUNTER → 2019-02-11 | Outpatient (CLI) | payer MEDICARE ==
[2019-02-11 17:21] LABS: HEMATOCRIT 39.3 % (37.9-51.0); HEMOGLOBIN 13.3 g/dL (13.5-17.0); MEAN CORPUSCULAR HEMOGLOBIN 33.8 pg (27.0-33.4); MEAN CORPUSCULAR HGB CONC 33.9 g/dL (32.0-36.0); MEAN CORPUSCULAR VOLUME 100 fl (80-97); RED BLOOD COUNT 3.93 10^6/uL (4.35-5.55); RED CELL DISTRIBUTION WIDTH 15.1 % (11.5-14.0); WHITE BLOOD COUNT 3.2 10^3/uL (4.0-10.5)
[2019-02-11 17:29] LABS: ANION GAP 7 (5-19); BLOOD UREA NITROGEN 25 mg/dL (7-20); CALCIUM 9.1 mg/dL (8.4-10.2); CARBON DIOXIDE 27 mmol/L (22-30); CHLORIDE 106 mmol/L (98-107); GLUCOSE 154 mg/dL (75-110); POTASSIUM 3.8 mmol/L (3.6-5.0)
[2019-02-11 17:45] LABS: PLATELET COUNT 69 10^3/uL (150-450)
== END ==
LOC: OD 15:55
PROVIDERS: ATTEND Internal Medicine Nephrology
DX: I12.9 Hypertensive chronic kidney disease with stage 1 through stage 4 chronic kidney disease, or unspecified chronic kidney disease (principal); N18.3 Chronic kidney disease, stage 3 (moderate); D63.1 Anemia in chronic kidney disease
CPT/HCPCS: 36415; 80048; 83735; 85027

== ENCOUNTER → 2019-04-14 | Outpatient (CLI) | payer MEDICARE ==
[2019-04-14 15:26] LABS: APPEARANCE,URINE CLEAR; BILIRUBIN,URINE NEGATIVE (NEGATIVE); COLOR,URINE STRAW; GLUCOSE, URINE NEGATIVE (NEGATIVE); KETONES,URINE NEGATIVE (NEGATIVE); LEUKOCYTE ESTERASE,URINE NEGATIVE (NEGATIVE); NITRITE,URINE NEGATIVE (NEGATIVE); PROTEIN,URINE NEGATIVE (NEGATIVE); URINE SPECIFIC GRAVITY 1.009; UROBILINOGEN,URINE NEGATIVE mg/dL (<2.0)
[2019-04-14 15:27] LABS: ABSOLUTE EOSINOPHILS # (AUTO) 0.1 10^3/uL (0.0-0.6); ABSOLUTE LYMPHOCYTES (AUTO) 0.5 10^3/uL (0.5-4.7); ABSOLUTE MONOCYTES (AUTO) 0.3 10^3/uL (0.1-1.4); ABSOLUTE NEUT (AUTO) 1.8 10^3/uL (1.7-8.2); BASOPHILS % (AUTO) 0.3 % (0-2); EOSINOPHILS % (AUTO) 2.6 % (0-6); HEMATOCRIT 40.4 % (37.9-51.0); HEMOGLOBIN 13.9 g/dL (13.5-17.0); LYMPHOCYTES % (AUTO) 19.6 % (13-45); MEAN CORPUSCULAR HGB CONC 34.3 g/dL (32.0-36.0); MEAN CORPUSCULAR VOLUME 99 fl (80-97); MONOCYTES % (AUTO) 9.5 % (3-13); RED BLOOD COUNT 4.08 10^6/uL (4.35-5.55); RED CELL DISTRIBUTION WIDTH 14.2 % (11.5-14.0); TOTAL CELLS COUNTED % (AUTO) 100 %; WHITE BLOOD COUNT 2.7 10^3/uL (4.0-10.5)
[2019-04-14 15:45] LABS: ANION GAP 9 (5-19); BLOOD UREA NITROGEN 39 mg/dL (7-20); CALCIUM 9.1 mg/dL (8.4-10.2); CARBON DIOXIDE 27 mmol/L (22-30); CHLORIDE 105 mmol/L (98-107); GLUCOSE 139 mg/dL (75-110); POTASSIUM 4.8 mmol/L (3.6-5.0)
[2019-04-14 16:16] LABS: PLATELET COUNT 63 10^3/uL (150-450)
== END ==
LOC: OD 14:30
PROVIDERS: ATTEND Internal Medicine Nephrology
DX: I12.9 Hypertensive chronic kidney disease with stage 1 through stage 4 chronic kidney disease, or unspecified chronic kidney disease (principal); N18.3 Chronic kidney disease, stage 3 (moderate)
CPT/HCPCS: 36415; 80048; 81001; 85025

== ENCOUNTER → 2019-08-11 | Outpatient (CLI) | payer MEDICARE ==
[2019-08-11 13:27] LABS: ABSOLUTE EOSINOPHILS # (AUTO) 0.1 10^3/uL (0.0-0.6); ABSOLUTE LYMPHOCYTES (AUTO) 0.8 10^3/uL (0.5-4.7); ABSOLUTE MONOCYTES (AUTO) 0.4 10^3/uL (0.1-1.4); ABSOLUTE NEUT (AUTO) 2.8 10^3/uL (1.7-8.2); BASOPHILS % (AUTO) 0.6 % (0-2); EOSINOPHILS % (AUTO) 2.6 % (0-6); HEMATOCRIT 42.4 % (37.9-51.0); HEMOGLOBIN 14.9 g/dL (13.5-17.0); LYMPHOCYTES % (AUTO) 19.9 % (13-45); MEAN CORPUSCULAR HEMOGLOBIN 34.4 pg (27.0-33.4); MEAN CORPUSCULAR HGB CONC 35.2 g/dL (32.0-36.0); MEAN CORPUSCULAR VOLUME 98 fl (80-97); MONOCYTES % (AUTO) 8.7 % (3-13); RED BLOOD COUNT 4.34 10^6/uL (4.35-5.55); SEGMENTED NEUTROPHILS % (AUTO) 68.2 % (42-78); TOTAL CELLS COUNTED % (AUTO) 100 %
[2019-08-11 13:37] LABS: APPEARANCE,URINE CLEAR; BILIRUBIN,URINE NEGATIVE (NEGATIVE); COLOR,URINE YELLOW; GLUCOSE, URINE NEGATIVE (NEGATIVE); KETONES,URINE NEGATIVE (NEGATIVE); LEUKOCYTE ESTERASE,URINE NEGATIVE (NEGATIVE); NITRITE,URINE NEGATIVE (NEGATIVE); PROTEIN,URINE NEGATIVE (NEGATIVE); URINE SPECIFIC GRAVITY 1.009; UROBILINOGEN,URINE NEGATIVE mg/dL (<2.0)
[2019-08-11 13:47] LABS: ANION GAP 10 (5-19); BLOOD UREA NITROGEN 41 mg/dL (7-20); CALCIUM 9.2 mg/dL (8.4-10.2); CARBON DIOXIDE 30 mmol/L (22-30); CHLORIDE 98 mmol/L (98-107); GLUCOSE 217 mg/dL (75-110); PHOSPHORUS 3.7 mg/dL (2.5-4.5); POTASSIUM 4.2 mmol/L (3.6-5.0)
[2019-08-11 13:54] LABS: PLATELET COUNT 78 10^3/uL (150-450)
== END ==
LOC: OD 12:53
PROVIDERS: ATTEND Physician Assistant Medical
DX: N17.9 Acute kidney failure, unspecified (principal); I12.9 Hypertensive chronic kidney disease with stage 1 through stage 4 chronic kidney disease, or unspecified chronic kidney disease; N18.3 Chronic kidney disease, stage 3 (moderate); E87.6 Hypokalemia
CPT/HCPCS: 36415; 80048; 81001; 83970; 84100; 85025

== ENCOUNTER → 2019-10-07 | Outpatient (CLI) | payer MEDICARE ==
[2019-10-07 16:34] LABS: ALBUMIN 3.8 g/dL (3.5-5.0); ANION GAP 7 (5-19); BLOOD UREA NITROGEN 33 mg/dL (7-20); CALCIUM 8.9 mg/dL (8.4-10.2); CARBON DIOXIDE 25 mmol/L (22-30); CHLORIDE 106 mmol/L (98-107); GLUCOSE 97 mg/dL (75-110); PHOSPHORUS 3.4 mg/dL (2.5-4.5); POTASSIUM 4.5 mmol/L (3.6-5.0)
== END ==
LOC: OD 15:25
PROVIDERS: ATTEND Physician Assistant Medical
DX: I12.9 Hypertensive chronic kidney disease with stage 1 through stage 4 chronic kidney disease, or unspecified chronic kidney disease (principal); N18.3 Chronic kidney disease, stage 3 (moderate); E87.6 Hypokalemia; D64.9 Anemia, unspecified; R60.9 Edema, unspecified; N25.0 Renal osteodystrophy
CPT/HCPCS: 36415; 80069